=== PATIENT | female | born 1995 | race American Indian/Alaskan Native ===

== ENCOUNTER 2017-06-21 17:22 | Emergency (ER) | payer OTHER ==
[2017-06-21 17:30] VITALS: BP 116/75
== END 2017-06-21 18:00 | disposition left against medical advice (07) ==
LOC: ED 17:22
DX: N93.9 Abnormal uterine and vaginal bleeding, unspecified (principal); Z53.21 Procedure and treatment not carried out due to patient leaving prior to being seen by health care provider

== ENCOUNTER 2019-04-25 22:42 | Inpatient (IN) | payer MEDICAID, OTHER ==
[2019-04-25] MEDS ORDERED: BRETHINE IVP PRN (23:25)
[2019-04-25] MEDS ORDERED: AMPICILLIN/NS 2 GM/100 ML 2 GM/100 ML BAG IV ONE (23:25)
[2019-04-25] MEDS ORDERED: XYLOCAINE 2% INFILTRATI ONE (23:25)
[2019-04-25] MEDS ORDERED: MINERAL OIL PO PRN (23:25)
[2019-04-25] MEDS ORDERED: BRETHINE SUB-Q PRN (23:25)
[2019-04-25] MEDS ORDERED: SUBLIMAZE IV PRN (23:25)
[2019-04-25] MEDS ORDERED: LACTATED RINGERS 1,000 ML IV SCH (23:45)
[2019-04-25] MEDS ORDERED: PITOCin/NS 20 UNIT/1000ML DRIP 20 UNITS/1,000 ML BAG IV SCH (23:45)
[2019-04-26 00:02] LABS: Hematocrit 32.6 % (30.3-42.9); Hemoglobin 10.4 gm/dl (10.1-14.3); Mean Corpuscular HGB Conc 32 % (30-34); Mean Corpuscular Volume 78 fl (79-97); Platelet Count 297 K/mm3 (140-440); Red Blood Count 4.18 M/mm3 (3.65-5.03); Red Cell Distribution Width 17.1 % (13.2-15.2)
--- NOTE | 2019-04-26 00:38 | History and Physical Report ---
History of Present Illness Date of examination: 04/26/19 Date of admission: 04/25/19 23:30 Chief complaint: contractions History of present illness: This is a 23 yo EDC 13 Sep here for contractions. She was seen and triaged in L&D and noted that she was 5/100/-1 bulging membrane. She is patient of [facility]. She was admitted for labor. Past History Past Medical History: no pertinent history Past Surgical History: no surgical history Family/Genetic History: none Social history: single. denies: smoking, alcohol abuse, prescription drug abuse - Obstetrical History Expected Date of Delivery: 04/24/19 Actual Gestation: 40 Week(s) 2 Day(s) : 2 Para: 0 Hx # Term Pregnancies: 0 Number of Pregnancies: 0 Spontaneous Abortions: 1 Induced : 0 Number of Living Children: 0 Medications and Allergies Allergies Allergy/AdvReac Type Severity Reaction Status Date / Time No Known Allergies Allergy Verified 06/21/17 17:26 Home Medications Medication Instructions Recorded Confirmed Last Taken Type Acetaminophen [Acetaminophen TAB] 325 mg PO Q4H PRN #30 tablet 03/06/17 Unknown Rx Ciprofloxacin HCl [Ciprofloxacin 500 mg PO BID #14 tablet 03/06/17 Unknown Rx TAB] oxyCODONE /ACETAMINOPHEN [Percocet 1 tab PO Q6H PRN #15 tablet 03/06/17 Unknown Rx 5/325 mg] Active Meds: Active Medications Ephedrine Sulfate (Ephedrine Sulfate) 10 mg IV Q2M PRN PRN Reason: Hypotension Fentanyl (Sublimaze) 100 mcg IV Q2H PRN PRN Reason: Labor Pain Last Admin: 04/25/19 23:52 Dose: 100 mcg Documented by: Oxytocin/Sodium Chloride (Pitocin/Ns 20 Unit/1000ml Drip) 20 units in 1,000 mls @ 125 mls/hr IV DIRECT LIZANDRO Lactated Ringer's (Lactated Ringers) 1,000 mls @ 125 mls/hr IV DIRECT LIZANDRO Last Admin: 04/25/19 23:30 Dose: 125 mls/hr Documented by: Ampicillin Sodium (Ampicillin/Ns 1 Gm/50 Ml) 1 gm in 50 mls @ 100 mls/hr IV Q4HR LIZANDRO; Protocol Mineral Oil (Mineral Oil) 30 ml PO QHS PRN PRN Reason: Constipation Terbutaline Sulfate (Brethine) 0.25 mg SUB-Q ONCE PRN PRN Reason: Hyperstimulation/Hypertonicity Terbutaline Sulfate (Brethine) 0.25 mg IVP ONCE PRN PRN Reason: Hyperstimulation/Hypertonicity Review of Systems All systems: negative Genitourinary: contractions - Vital Signs Vital signs: Vital Signs Pulse Pulse Ox 130 H 99 04/25/19 23:11 04/25/19 23:11 Temp Pulse Resp BP Pulse Ox 90 15 92/54 99 04/25/19 23:48 04/25/19 23:52 04/25/19 23:48 04/25/19 23:26 - Physical Exam Breasts: Positive: normal Cardiovascular: Regular rate, Normal S1 Lungs: Positive: Clear to auscultation, Normal air movement Abdomen: Positive: normal appearance, soft, normal bowel sounds. Negative: distention, tenderness, guarding Genitourinary (Female): Positive: normal external genitalia, normal perenium Vulva: both: normal Vagina: Positive: normal moisture Uterus: Positive: normal size Anus/Rectum: Positive: normal perianal skin Extremities: Positive: normal Deep Tendon Reflex Grade: Normal +2 - Obstetrical FHR: category 1 Cervical Dilatation: 8 Cervical Effacement Percentage: 100 station: -1 Results Result Diagrams: 04/25/19 23:40 Abnormal lab results 04/25/19 Range/Units 23:40 WBC 14.9 H (4.5-11.0) K/mm3 MCV 78 L (79-97) fl MCH 25 L (28-32) pg RDW 17.1 H (13.2-15.2) % All other labs normal. Assessment and Plan A/P HD#1 term 40+2 weeks Active labor ivf, labs offer epidural expect vaginal delivery
[2019-04-26] MEDS ORDERED: MARCAINE 0.25% INFILTRATI ONE (00:44)
[2019-04-26] MEDS ORDERED: NARCAN 2 MG/2 ML IV PRN (01:03)
--- NOTE | 2019-04-26 01:03 | Anesthesia Consultation ---
Anesthesia Consult and Med Hx Date of service: 04/26/19 - Airway Anesthetic Teeth Evaluation: Good ROM Head & Neck: Adequate Mental/Hyoid Distance: Adequate Mallampati Class: Class II Intubation Access Assessment: Good - Pulmonary Exam CTA: Yes - Cardiac Exam Cardiac Exam: RRR - Pre-Operative Health Status ASA Pre-Surgery Classification: ASA2, Emergency Proposed Anesthetic Plan: Spinal - Pulmonary Hx Asthma: No COPD: No Hx Pneumonia: No - Cardiovascular System Hx Hypertension: No - Central Nervous System Hx Seizures: No Hx Psychiatric Problems: No - Endocrine Hx Renal Disease: No Hx End Stage Renal Disease: No Hx Hypothyroidism: No Hx Hyperthyroidism: No - Hematic Hx Anemia: No Hx Sickle Cell Disease: No - Other Systems Hx Alcohol Use: No Hx Cancer: No
[2019-04-26] MEDS ORDERED: fentaNYL-BUPIV 2 MCG/ML-0.125% 200 MCG/100 ML BAG EPIDURAL SCH (02:00)
[2019-04-26] MEDS ORDERED: TYLENOL PO PRN (02:01)
[2019-04-26] MEDS ORDERED: ANUCORT-HC PR PRN (02:01)
[2019-04-26] MEDS ORDERED: PHENERGAN PR PRN (02:01)
[2019-04-26] MEDS ORDERED: TUCKS PAD TP PRN (02:01)
[2019-04-26] MEDS ORDERED: LANSINOH TP PRN (02:01)
[2019-04-26] MEDS ORDERED: MILK OF MAGNESIA PO PRN (02:01)
[2019-04-26] MEDS ORDERED: ZOFRAN IV PRN (02:01)
[2019-04-26] MEDS ORDERED: TORADOL IV PRN (02:01)
[2019-04-26] MEDS ORDERED: BENADRYL PO PRN (02:01)
[2019-04-26] MEDS ORDERED: DULCOLAX PR PRN (02:01)
[2019-04-26] MEDS ORDERED: PHENERGAN PO PRN (02:01)
--- NOTE | 2019-04-26 02:12 | Procedure Note ---
OB Delivery Note - Delivery Date of Delivery: 04/26/19 Surgeon: ELIZABET SIERRA Estimated blood loss: other (400 cc) - Vaginal Delivery presentation: vertex Delivery position: OA Delivery augmentation: rupture of membranes Delivery monitor: external FHT, external uterine Route of delivery: Delivery placenta: spontaneous Delivery cord: 3 umbilical vessels Episiotomy: none Delivery laceration: 2nd degree Delivery repair: vicryl Anesthesia: local, epidural Delivery comments: Pt progressed to complete/complete/+3 and she pushed to deliver a viable male via under epidural 136a. Head delivered in RICHELLE position, quickly followed by shoulders and body. Cord clamped and cut. Placenta delivered spontaneously (3VC, intact) at 153a. Baby weighed 7 pounds 4 oz. Apgars 8 and 9. Vagina and perineum explored. Second degree laceration noted . Second degree repaired with 2-0 vicryl after lidocaine procedure. EBL 400 cc. - Infant A at 1 minute: 8 at 5 minutes: 9 Gender: Female (7 pounds 4 oz)
[2019-04-26] MEDS ORDERED: SODIUM CHLORIDE FLUSH SYRINGE 10 ML IV NR (03:00)
[2019-04-26] MEDS ORDERED: PITOCin/NS 20 UNIT/1000ML DRIP 20 UNITS/1,000 ML BAG IV SCH (03:00)
[2019-04-26] MEDS ORDERED: AMPICILLIN/NS 1 GM/50 ML 1 GM/50 ML BAG IV SCH (03:26)
[2019-04-26] MEDS: IBUPROFEN PO SCH ×3 (03:31→21:02)
[2019-04-26] MEDS: NORCO 5/325 PO PRN (04:34)
[2019-04-26] MEDS: COLACE PO SCH ×2 (10:33→23:43)
[2019-04-26] MEDS: PRENATAL VITAMIN PO SCH (10:33)
[2019-04-26] MEDS: FEOSOL PO SCH ×2 (10:33→23:44)
[2019-04-26] MEDS: SENOKOT S PO SCH (10:36)
[2019-04-26 15:51] LABS: Hematocrit 29.3 % (30.3-42.9); Hemoglobin 9.5 gm/dl (10.1-14.3)
[2019-04-26] MEDS: PERCOCET 5/325 PO PRN (21:01)
--- NOTE | 2019-04-26 23:46 | Post Anesthesia Evaluation ---
- Post Anesthesia Evaluation Patient Participated: Yes Airway Patent: Yes Stable Respiratory Function: Yes Nausea/Vomiting: No Temp > 96.8F: Yes Pain Manageable: Yes Adequeate Hydration: Yes Anesthesia Complications: No Block Receding Appropriately: Yes Patient on Ventilator: No
[2019-04-27] MEDS ORDERED: BOOSTRIX IM ONE (06:00)
[2019-04-27] MEDS ORDERED: M-M-R II VACCINE SUB-Q ONE (06:00)
[2019-04-27] MEDS: SENOKOT S PO SCH ×2 (11:54→21:33)
[2019-04-27] MEDS: IBUPROFEN PO SCH ×2 (11:54→20:10)
[2019-04-27] MEDS: COLACE PO SCH ×2 (11:54→21:33)
[2019-04-27] MEDS: FEOSOL PO SCH ×2 (13:04→21:32)
[2019-04-27] MEDS: PRENATAL VITAMIN PO SCH (13:04)
[2019-04-27] MEDS: NORCO 5/325 PO PRN (13:04)
--- NOTE | 2019-04-27 16:32 | Progress Note ---
Assessment and Plan A: PPD#1 s/p at term, Asymptomatic anemia P: Routine care. Anticipate discharge tomorrow. Subjective - Subjective Date of service: 04/27/19 Principal diagnosis: s/p at term Interval history: Pt without complaints overnight Patient reports: appetite normal, voiding normally, pain well controlled, ambulating normally [place]: doing well Objective - Vital Signs Latest vital signs: Vital Signs Temp Pulse Resp BP BP Pulse Ox 04/27/19 07:41 97.3 F L 86 18 114/69 04/27/19 01:13 98.4 F 87 18 109/73 97 Intake and Output 04/27/19 04/27/19 04/27/19 06:59 14:59 22:59 Intake Total 480 Balance 480 Intake: Oral 480 Other: Total, Intake Amount 480 - Exam Breasts: Present: deferred Cardiovascular: Present: Regular rate Lungs: Present: Clear to auscultation Abdomen: Present: soft Extremities: Present: normal
--- NOTE | 2019-04-27 16:33 | Discharge Summary ---
Providers - Providers Date of Admission: 04/25/19 23:30 Date of discharge: 04/28/19 Attending physician: ELIZABET AHUJA MD Primary care physician: ELIZABET AHUJA MD Hospitalization Reason for admission: active labor Delivery: Procedure details: Please see delivery note. Episiotomy: none Laceration: 2nd degree Other procedures: none complications: none Discharge diagnosis: IUP at term delivered baby: male Hospital course: Pt was admitted in active labor and went on to have a spontaneous vaginal delivery which she tolerated well. Her course was uncomplicated and she met discharge criteria on PPD#2. She will follow up in [address] Ahuja. Condition at discharge: Stable Disposition: DC-01 TO HOME OR SELFCARE - Discharge Diagnoses (1) Term of male Status: Acute (2) Anemia Status: Acute Qualifiers: Anemia type: unspecified type Qualified Code(s): D64.9 - Anemia, unspecified Plan - Discharge Medications Prescriptions: Ferrous Sulfate [Feosol 325 MG tab] 325 mg PO BID #30 tablet Ibuprofen [Motrin] 600 mg PO Q8H PRN #30 tablet PRN Reason: Pain oxyCODONE /ACETAMINOPHEN [Percocet 5/325] 1 tab PO Q6HR PRN #30 tablet PRN Reason: Pain - Provider Discharge Summary Activity: routine, no sex for 6 weeks, no heavy lifting 4 weeks, no strenuous exercise Diet: routine Instructions: routine Additional instructions: [] Smoking cessation referral if applicable(refer to patient education folder for contact #) [] Refer to [facility] Booklet Call your doctor immediately for: * Fever > 100.5 * Heavy vaginal bleeding ( >1 pad per hour) * Severe persistent headache * Shortness of breath * Reddened, hot, painful area to leg or breast * Drainage or odor from incision. * Keep incision clean and dry at all times and follow doctor's instructions regarding bathing/showering - Follow up plan Follow up: ELIZABET AHUJA MD [Primary Care Provider] - 05/24/19 (Please call to schedule appt )
[2019-04-27] MEDS ORDERED: DERMOPLAST TP PRN (19:49)
[2019-04-27] MEDS: PERCOCET 5/325 PO PRN (21:38)
[2019-04-28] MEDS: IBUPROFEN PO SCH ×3 (07:37→17:45)
[2019-04-28] MEDS: PRENATAL VITAMIN PO SCH (09:43)
[2019-04-28] MEDS: COLACE PO SCH ×2 (09:43→21:20)
[2019-04-28] MEDS: SENOKOT S PO SCH ×2 (09:43→21:20)
[2019-04-28] MEDS: FEOSOL PO SCH ×2 (09:44→21:20)
--- NOTE | 2019-04-28 12:22 | Progress Note ---
Assessment and Plan PPD1 s/p Acute on chronic anemia- iron supplementation VSS Anticipate discharge to home tomorrow Subjective - Subjective Date of service: 04/28/19 Principal diagnosis: PPD1 s/p at term Interval history: Pt is PPD1 s/p at term Patient reports: appetite normal, voiding normally, pain well controlled, ambulating normally [place]: doing well, nursing well, bottle feeding (primarily breast) Objective - Vital Signs Latest vital signs: Vital Signs Temp Pulse Resp BP Pulse Ox 04/28/19 08:13 98.3 F 74 18 118/71 04/28/19 01:38 98.1 F 66 20 118/56 99 04/27/19 17:23 98.7 F 82 18 111/63 Intake and Output 04/27/19 04/28/19 04/28/19 23:59 07:59 15:59 Intake Total 480 40 Balance 480 40 Intake: Oral 480 40 Other: Total, Intake Amount 480 40 - Exam Lungs: Present: Normal air movement Abdomen: Present: normal appearance, soft Uterus: Present: normal, firm, fundal height below umbilicus Extremities: Present: normal
[2019-04-28 16:50] VITALS: BP 129/84
[2019-04-28] MEDS: PERCOCET 5/325 PO PRN (21:27)
== END 2019-04-28 22:27 | disposition home or self-care (01) | DRG 775 ==
LOC: TRG 22:42 → LD 23:30 → OBSVTOIN 23:30 → TRG 23:30 → OB 04-26 04:50
PROVIDERS: ADMIT Obstetrics & Gynecology; ATTEND Obstetrics & Gynecology
PROC: 10E0XZZ Delivery of Products of Conception, External Approach (ICD-10-PCS; principal; 2019-04-26)
PROC: 0KQM0ZZ Repair Perineum Muscle, Open Approach (ICD-10-PCS; 2019-04-26)
PROC: 3E0R3BZ Introduction of Anesthetic Agent into Spinal Canal, Percutaneous Approach (ICD-10-PCS; 2019-04-26)
PROC: 00HU33Z Insertion of Infusion Device into Spinal Canal, Percutaneous Approach (ICD-10-PCS; 2019-04-26)
PROC: 3E0234Z Introduction of Serum, Toxoid and Vaccine into Muscle, Percutaneous Approach (ICD-10-PCS; 2019-04-27)
DX: O70.1 Second degree perineal laceration during delivery (principal); Z37.0 Single live birth; O99.02 Anemia complicating childbirth; Z3A.40 40 weeks gestation of pregnancy
CPT/HCPCS: 36415; 85014; 85018; 85027; 86592; 86593; 86780; 86850; 86900; 86901; G0378; A6250; J0290; J2590; J3010; J7120

== ENCOUNTER 2021-05-14 15:50 | Emergency (ER) | payer MEDICAID ==
[2021-05-14 16:43] VITALS: BP 116/79
[2021-05-14] MEDS ORDERED: LIDOCAINE (1%) 10 MG/1 ML VIAL 20 ML MDV INFILTRATI ONE (16:57)
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
[2021-05-14] MEDS ORDERED: IBUPROFEN 800 MG TAB PO STA (18:19)
[2021-05-14] MEDS ORDERED: ACETAMINOPHEN 500 MG TAB PO STA (18:19)
== END 2021-05-14 19:33 | disposition home or self-care (01) ==
LOC: ED 15:50
DX: S91.012A Laceration without foreign body, left ankle, initial encounter (principal); G43.909 Migraine, unspecified, not intractable, without status migrainosus; Z90.89 Acquired absence of other organs; V89.2XXA Person injured in unspecified motor-vehicle accident, traffic, initial encounter; V49.49XA Driver injured in collision with other motor vehicles in traffic accident, initial encounter; W22.11XA Striking against or struck by driver side automobile airbag, initial encounter; Y93.9 Activity, unspecified; Y92.89 Other specified places as the place of occurrence of the external cause; Y99.8 Other external cause status
CPT/HCPCS: 99283

== ENCOUNTER 2021-05-27 13:01 | Emergency (ER) | payer MEDICAID, OTHER ==
[2021-05-27 13:05] VITALS: BP 112/83
--- NOTE | 2021-05-27 13:18 | Emergency Department Report ---
Suture/Staple Removal - HPI Chief Complaint: Laceration/Recheck/Suture Stated Complaint: SUTURE REMOVAL Time Seen by Provider: 05/27/21 13:17 When Sutures or Ishmael Placed: 11-14 Days Ago Wound Location: left ankle ED Review of Systems ROS: Stated complaint: SUTURE REMOVAL Other details as noted in HPI Comment: All other systems reviewed and negative Constitutional: denies: chills, fever Eyes: denies: eye pain, eye discharge, vision change ENT: denies: ear pain, throat pain Respiratory: denies: cough, shortness of breath, wheezing Cardiovascular: denies: chest pain, palpitations Endocrine: no symptoms reported Gastrointestinal: denies: abdominal pain, nausea, diarrhea Genitourinary: denies: urgency, dysuria, discharge Musculoskeletal: denies: back pain, joint swelling, arthralgia Skin: denies: rash, lesions Neurological: denies: headache, weakness, paresthesias Psychiatric: denies: anxiety, depression Hematological/Lymphatic: denies: easy bleeding, easy bruising ED Past Medical Hx - Past Medical History Hx Hypertension: No Hx Congestive Heart Failure: No Hx Diabetes: No Hx Deep Vein Thrombosis: No Hx Renal Disease: No Hx Sickle Cell Disease: No Hx Headaches / Migraines: Yes Hx Seizures: No Hx Asthma: No Hx COPD: No Hx HIV: No - Surgical History Hx Appendectomy: Yes (01/04/17) Additional Surgical History: appendectomy - Social History Smoking Status: Never Smoker - Medications Home Medications: Home Medications Medication Instructions Recorded Confirmed Last Taken Type Acetaminophen [Acetaminophen TAB] 325 mg PO Q4H PRN #30 tablet 03/06/17 04/26/19 Unknown Rx Ciprofloxacin HCl [Ciprofloxacin 500 mg PO BID #14 tablet 03/06/17 04/26/19 Unknown Rx TAB] oxyCODONE /ACETAMINOPHEN [Percocet 1 tab PO Q6H PRN #15 tablet 03/06/17 04/26/19 Unknown Rx 5/325 mg] Ferrous Sulfate [Feosol 325 MG tab] 325 mg PO BID #30 tablet 04/26/19 Unknown Rx Ibuprofen [Motrin] 600 mg PO Q8H PRN #30 tablet 04/26/19 Unknown Rx oxyCODONE /ACETAMINOPHEN [Percocet 1 tab PO Q6HR PRN #30 tablet 04/26/19 Unknown Rx 5/325] Ferrous Sulfate [Ferrous Sulfate 324 mg PO BID #60 tablet. 04/28/19 Unknown Rx 324 MG] Ibuprofen [Motrin] 600 mg PO Q6H PRN #60 tablet 04/28/19 Unknown Rx Ibuprofen [Motrin 800 MG tab] 800 mg PO Q8HR PRN #20 tablet 05/14/21 Unknown Rx Mupirocin [Bactroban 2% OINT] 1 applic TP TID 7 Days #1 tube 05/14/21 Unknown Rx Suture Removal Exam - Exam General: Vital signs noted. No distress. Alert and acting appropriately. Wound: No Pathologic Erythema, No Tenderness, No Drainage, No Pus, No Wound Dehiscence Other Systems: All other systems reviewed and are unremarkable. ED Course Vital Signs 05/27/21 13:05 Temperature 98.5 F Pulse Rate 95 H Respiratory 18 Rate Blood Pressure 112/83 O2 Sat by Pulse 100 Oximetry - Reevaluation(s) Reevaluation #1: 05/27/21 13:18 Patient is speaking in full sentences with no signs of distress noted. ED Recheck MDM - Medical Decision Making This is a 25-year-old male that presents with suture removal. She is stable and was examined by me. Total of 8 continue with sutures has been removed and patient tolerated well. No signs of wound dehiscence, drainage, or cellulitis. Patient was referred to Follow-up with a primary care doctor in 3-5 days or if symptoms worsen and continue return to emergency room as soon as possible. At time of discharge, the patient does not seem toxic or ill in appearance. No acute signs of distress noted. Patient agrees to discharge treatment plan of care. No further questions noted by the patient. Critical care attestation.: If time is entered above; I have spent that time in minutes in the direct care o f this critically ill patient, excluding procedure time. ED Disposition Clinical Impression: Visit for suture removal Disposition: 01 HOME / SELF CARE / HOMELESS Is pt being admited?: No Does the pt Need Aspirin: No Condition: Stable Instructions: Suture Removal, Care After Additional Instructions: Follow-up with a primary care doctor in 3-5 days or if symptoms worsen and continue return to emergency room as soon as possible. Referrals: PRIMARY [facility] [Referring] - 3-5 Days THANIA MARCOS MD [Staff Physician] - 3-5 Days Forms: Work/School Release Form(ED) Time of Disposition: 13:23
== END 2021-05-27 14:26 | disposition home or self-care (01) ==
LOC: ED 13:01
DX: S91.012D Laceration without foreign body, left ankle, subsequent encounter (principal); G43.909 Migraine, unspecified, not intractable, without status migrainosus; Z90.49 Acquired absence of other specified parts of digestive tract; X58.XXXD Exposure to other specified factors, subsequent encounter
CPT/HCPCS: 99282